=== PATIENT | male | born 1990 | race African-American/Black ===

== ENCOUNTER 2022-01-02 03:30 | Emergency (ER) | payer OTHER ==
[~2022-01-02] VITALS: Ht 170.2 cm; Wt 72.6 kg
[2022-01-02 03:38] VITALS: BP 153/98
--- NOTE | 2022-01-02 04:09 | NUR ---
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
== END 2022-01-02 07:00 | disposition home or self-care (01) ==
LOC: ER 03:38
DX: R06.02 Shortness of breath (principal); R07.89 Other chest pain; F19.10 Other psychoactive substance abuse, uncomplicated; F17.200 Nicotine dependence, unspecified, uncomplicated; Z60.2 Problems related to living alone
CPT/HCPCS: 71045-TC

== ENCOUNTER 2025-06-18 00:13 | Emergency (ER) | payer MEDICAID, OTHER ==
[~2025-06-18] VITALS: Ht 188 cm; Wt 79.4 kg
[2025-06-18] MEDS ORDERED: METOCLOPRAMIDE HCL 10 MG/2 ML VIAL ONE (01:29)
[2025-06-18] MEDS ORDERED: KETOROLAC TROMETHAMINE 15 MG/ML VIAL ONE ×2 (01:29→04:17)
[2025-06-18] MEDS: IV NS 0.9% 1,000 ML BAG IV ONE ×2 (01:41→03:06)
[2025-06-18] MEDS: METOCLOPRAMIDE HCL 10 MG/2 ML VIAL IV ONE (01:41)
[2025-06-18] MEDS: KETOROLAC TROMETHAMINE 15 MG/ML VIAL IV ONE ×2 (01:41→04:28)
[2025-06-18] MEDS ORDERED: BUTALB/APAP/CAFFEINE 1 EACH TABLET ONE (03:01)
[2025-06-18] MEDS: BUTALB/APAP/CAFFEINE 1 EACH TABLET PO PRN (03:06)
[2025-06-18 05:02] VITALS: BP 130/78; TEMP 98; O2SAT 97
== END 2025-06-18 05:02 | disposition home or self-care (01) ==
LOC: ER 00:17
DX: D32.9 Benign neoplasm of meninges, unspecified (principal); K08.89 Other specified disorders of teeth and supporting structures; Z60.2 Problems related to living alone
CPT/HCPCS: 99285; 96374; 70450; 96361; 96375; 96376; J1885 ×2; J2765; J7030 ×2